=== PATIENT | female | born 1970 | race Caucasian/White ===

== ENCOUNTER → 2016-11-03 | Outpatient (CLI) | payer MEDICARE, BC ==
--- NOTE | 2016-11-04 06:28 | WWHP ---
[facility] - HISTORY AND PHYSICAL DATE OF SERVICE: 11/03/2016 CHIEF COMPLAINT: The patient is here for her routine gynecologic exam and mammogram. HPI: This is a 46-year-old, G12, P3-0-9-3 with an LMP of 10/28/16. She is status post tubal ligation. She does have a history of hypermenorrhea. She was given a prescription for meclofenamate sodium last year because of her heavy menstrual flow. She states it did not make any difference. Her periods have now gotten longer and she continues to have approximately 4 days of very heavy flow. The periods can be lasting up to 2 weeks. 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 Cycle lengths tend to be about every 3 weeks which only leaves her a few days each month without any bleeding. She states she is now interested in endometrial ablation for her hypermenorrhea. 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 She denies any other medical problems. MEDICATIONS: Aleve or Motrin p.r.n. for hand pain. ALLERGIES: No known drug allergies. PAST SURGICAL HISTORY: Hand surgery at age 5 and laparoscopic tubal ligation in 2004. 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 She does have history of hypermenorrhea. She has no history of STDs. SOCIAL HISTORY: She denies tobacco and drug use and has about 0 to 2 alcoholic drinks per week. 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 Family history is unchanged from the 2016 H&P. REVIEW OF SYSTEMS: She has lost about 14 pounds over the last year with diet and exercise. She denies respiratory, cardiac or GI problems. PHYSICAL EXAM: Blood pressure 118/82, height 5 feet 7 inches, weight 158 pounds. Temperature 98.1, pulse 75. This is a well-nourished white female, who is alert and oriented x3 in no acute distress. The patient has congenital upper extremity abnormalities as described above. She is otherwise well developed. HEENT is within normal limits. NECK: Supple without mass or thyromegaly. CHEST AND LUNGS: Clear to auscultation. HEART: Regular rate and rhythm. Breasts are without mass or discharge. Axillary exam is negative for adenopathy. BACK: Negative for CVA tenderness. ABDOMEN: Soft, nontender without palpable masses. PELVIC EXAM: Pelvic examination was refused by the patient because of her heavy menstrual bleeding. EXTREMITIES: Nontender. IMPRESSION: 1. A 46-year-old female with worsening hypermenorrhea consisting of prolonged menses and heavy menstrual flow. 2. The patient is status post tubal sterilization and is interested in endometrial ablation. PLAN: 1. Pap smear was not performed today. She did have a normal Pap smear on 03/05/2015. 2. Self breast examination was discussed. 3. Mammogram will be done today. 4. We have had a long discussion regarding her hypermenorrhea and options. She would like to proceed with endometrial ablation. She will be referred to Dr. Freitas who she has seen before for possible endometrial ablation. 5. She will also return in 1 year. MMODL / IJN: [id number] /
--- NOTE | 2016-11-05 09:32 | MM ---
Reason for exam: screening (asymptomatic). Last mammogram was performed 1 year and 8 months ago. History: Patient has history of other cancer at age 38. Physical Findings: A clinical breast exam by your physician is recommended on an annual basis and results should be correlated with mammographic findings. MG 3D Screening Mammo W/Cad Bilateral CC and MLO view(s) were taken. Prior study comparison: March 05, 2015, bilateral MG 3d screening mammo w/cad. April 18, 2013, bilateral digital screening mammo w/CAD. The breast tissue is heterogeneously dense. This may lower the sensitivity of mammography. Global asymmetry in the left breast is stable. No significant changes when compared with prior studies. ASSESSMENT: Negative, BI-RAD 1 RECOMMENDATION: Routine screening mammogram of both breasts in 1 year.
== END | disposition home or self-care (01) ==
LOC: WWCWWP 12:31
PROVIDERS: ATTEND Obstetrics & Gynecology
DX: Z12.31 Encounter for screening mammogram for malignant neoplasm of breast (principal)
CPT/HCPCS: 77063; G0202

== ENCOUNTER → 2020-09-10 | Outpatient (CLI) | payer MEDICARE, BC ==
--- NOTE | 2020-09-10 14:24 | MM ---
Reason for exam: screening (asymptomatic). Last mammogram was performed 3 years and 10 months ago. History: Patient has history of other cancer at age 38. Physical Findings: A clinical breast exam by your physician is recommended on an annual basis and results should be correlated with mammographic findings. MG 3D Screening Mammo W/Cad Bilateral CC and MLO view(s) were taken. Prior study comparison: November 03, 2016, bilateral MG 3d screening mammo w/cad. March 05, 2015, bilateral MG 3d screening mammo w/cad. The breast tissue is heterogeneously dense. This may lower the sensitivity of mammography. ASSESSMENT: Negative, BI-RAD 1 RECOMMENDATION: Routine screening mammogram of both breasts in 1 year.
== END | disposition home or self-care (01) ==
LOC: RADMAMWWP 07:22
PROVIDERS: ATTEND Family Medicine
DX: Z12.31 Encounter for screening mammogram for malignant neoplasm of breast (principal)
CPT/HCPCS: 77063; 77067